=== PATIENT | female | born 1985 | race Caucasian/White ===

== ENCOUNTER 2018-04-28 14:33 | Emergency (ER) | END 2018-04-28 16:29 | disposition home or self-care (01) ==

== ENCOUNTER 2018-05-11 13:58 | Emergency (ER) | END 2018-05-11 15:59 | disposition home or self-care (01) ==

== ENCOUNTER 2018-12-10 17:50 | Emergency (ER) | payer OTHER ==
[~2018-12-10] VITALS: Ht 162.6 cm; Wt 53.9 kg
[~2018-12-10 17:50] MED LIST: CYCL10TA7 PO; IBUP-1542 PO; IBUP-1982 PO; IBUP800T48 PO; NITR-58 PO
[2018-12-10 18:11] VITALS: Ht 162.6 cm; Wt 53.9 kg
--- NOTE | 2018-12-10 20:59 | ERD ---
ER Documentation Chief Complaint Chief Complaint on and off diff breathing; pt not in distress now; on/off chest tightness HPI 33-year-old female, presents to the emergency department, complaining of intermittent episodes of shortness of breath, associated with chest tightness during the last 3 days. The patient denies palpitations, no dizziness, no history of heart disease. The pain is exacerbated by pressure and movement of the arms. Otherwise, no fever, no chills, no cough or runny nose. ROS All systems reviewed and are negative except as per history of present illness. Medications Home Meds Active Scripts Ibuprofen* (Motrin*) 400 Mg Tab, 400 MG PO Q8, #20 TAB Prov:PRAMOD MARTINEZ MD 12/10/18 Lorazepam* (Ativan*) 0.5 Mg Tablet, 0.5 MG PO QHS PRN for ANXIETY, #7 TAB Prov:PRAMOD MARTINEZ MD 12/10/18 Ibuprofen* (Motrin*) 600 Mg Tab, 600 MG PO Q6 PRN for PAIN, #30 TAB Prov:NISHA PARKER DO 05/11/18 Nitrofurantoin Monohyd Macrocr* (Macrobid*) 100 Mg Capsr, 100 MG PO BID for 7 Days, #14 CAP Prov:NISHA PARKER DO 05/11/18 Ibuprofen* (Motrin*) 800 Mg Tab, 800 MG PO Q6H PRN for PAIN AND OR ELEVATED TEMP, #30 TAB Prov:SOMMER AMOR MD 04/28/18 Cyclobenzaprine Hcl* (Cyclobenzaprine Hcl*) 10 Mg Tablet, 10 MG PO TID, #15 TAB Prov:MICHAEL CUNNINGHAM NP 08/06/16 Reported Medications Ibuprofen* (Ibuprofen*) 200 Mg Capsule, 200 MG PO Q6 PRN 05/10/13 Allergies Allergies: Coded Allergies: No Known Allergy (Unverified , 05/10/13) PMhx/Soc History of Surgery: Yes (NOSE, BREAST AUG) Anesthesia Reaction: No Hx Neurological Disorder: No Hx Respiratory Disorders: No Hx Cardiac Disorders: No Hx Psychiatric Problems: No Hx Miscellaneous Medical Probl: No Hx Alcohol Use: No Hx Substance Use: No Hx Tobacco Use: No Smoking Status: Never smoker FmHx Family History: No diabetes, No coronary disease Physical Exam Vitals Vital Signs Date Temp Pulse Resp B/P (MAP) Pulse Ox O2 O2 Flow FiO2 Time Delivery Rate 12/10/18 98.2 72 19 120/62 100 Room Air 22:30 (81) 12/10/18 98.9 66 20 106/57 100 18:11 (73) Physical Exam Const: No acute distress Head: Atraumatic Eyes: Normal Conjunctiva ENT: Normal External Ears, Nose and Mouth. Neck: Full range of motion. No meningismus. Resp: Clear to auscultation bilaterally Cardio: Regular rate and rhythm, no murmurs Abd: Soft, non tender, non distended. Normal bowel sounds Skin: No petechiae or rashes Back: No midline or flank tenderness Ext: No cyanosis, or edema Neur: Awake and alert Psych: Normal Mood and Affect Results 24 hrs Laboratory Tests Test 12/10/18 21:11 12/10/18 21:12 Bedside Urine pH (LAB) 6.5 Bedside Urine Protein (LAB) Negative Bedside Urine Glucose (UA) Negative Bedside Urine Ketones (LAB) Trace Bedside Urine Blood Trace-intact Bedside Urine Nitrite (LAB) Negative Bedside Urine Leukocyte Esterase (L Negative POC Beta HCG, Qualitative NEGATIVE Current Medications Medications Dose Sig/Dilcia Start Time Status Last (Trade) Ordered Route PRN Stop Time Admin Dose Reason Admin 650 mg ONCE ONCE 12/10/18 DC 12/10/18 Acetaminophen PO 21:00 21:13 (Tylenol 12/10/18 21:10 Tab) Lorazepam 0.5 mg ONCE ONCE 12/10/18 DC (Ativan) PO 21:00 12/10/18 21:10 EKG read by me: Rate/Rhythm: Regular rate and rhythm at a rate of 60 Intervals: Normal No acute ST changes. No T wave inversion Impression: No evidence of acute ischemia or arrhythmia Procedures/MDM Vital signs stable. Differential diagnosis include but not limited to: URI, PNA, chostochondritis, GERD, musculoskeletal injury, less likely PE, pericarditis, endocarditis. Pertinent Data: 12 Lead ECG: Sinus rhythm, no ST changes, normal T wave, normal intervals Radiology: Chest x-rays: Normal Physical examination and clinical presentation consistent most likely with atypical chest pain most likely secondary to costochondritis. During the ED course the patient remained stable, no new complaints. Results and clinical impression discussed with patient who agrees with management. The patient is stable to be treated outpatient and will be discharged home with a Rx for ibuprofen; some side effects of prescribed medications (headache, rash, nausea, vomiting, diarrhea, drowsiness, habituation, bleeding, hypertension, interactions with other medications) were reviewed. The patient was instructed to follow up with the primary care provider in the next 48h. If symptoms persist, worsen or new symptoms develop, then patient should return to the ED immediately. Instructions explained and given directly by me to the patient with acknowledgment and demonstrated understanding. Disclaimer: Inadvertent spelling and grammatical errors are likely due to EHR/dictation software use and do not reflect on the overall quality of patient care. Also, please note that the electronic time recorded on this note does not necessarily reflect the actual time of the patient encounter. Departure Diagnosis: Primary Impression: Atypical chest pain Additional Impression: Costochondritis Condition: Stable Additional Instructions: Thank you very much for allowing us to participate in your care. Your health and safety is our top priority at [facility]. Call your primary care doctor TOMORROW for an appointment during the next 2-4 days and bring all the information and medications prescribed. Have prescriptions filled and follow precisely the directions on the label. If the symptoms get worse and your provider is unavailable, return to the Emergency Department immediately. PRAMOD MARTINEZ MD Dec 10, 2018 20:59
[2018-12-10] MEDS ORDERED: ACETAMINOPHEN 325 MG TAB PO ONE (21:00)
[2018-12-10] MEDS ORDERED: LORAZEPAM 0.5 MG TAB PO ONE (21:00)
[2018-12-10] MEDS ORDERED: IBUP-1561 PO (21:54)
[2018-12-10] MEDS ORDERED: LORA-441 PO (21:54)
[2018-12-10 22:30] VITALS: BP 120/62; PULSE 72; RESP 19
== END 2018-12-10 22:30 | disposition home or self-care (01) ==
LOC: FTE 17:50
DX: M94.0 Chondrocostal junction syndrome [Tietze] (principal)
CPT/HCPCS: 71046; 81003; 81025; 93005; Z7502; Z7610